=== PATIENT | female | born 1960 | race Caucasian/White ===

== ENCOUNTER 2016-06-01 22:48 | Emergency (ER) | payer MEDICARE, MEDICAID ==
[~2016-06-01] VITALS: Ht 157.5 cm; Wt 98.0 kg
[~2016-06-01 22:48] MED LIST: EFFE150C; FERR324T4; PERC10TA27; PREV30CA36; SULF1TAB47
[2016-06-01 22:55] VITALS: BP 142/90; PULSE 96; RESP 16; TEMP 97.5; O2SAT 96
[2016-06-02] MEDS ORDERED: HYDR-3583 PO (00:30)
[2016-06-02] MEDS ORDERED: LISI-515 PO (00:30)
[2016-06-02] MEDS ORDERED: VENL150C39 PO (00:30)
[2016-06-02] MEDS ORDERED: ZOLP5TAB3 PO (00:30)
[2016-06-02] MEDS ORDERED: OMEP40CA2 PO (00:30)
[2016-06-02] MEDS ORDERED: METO25TA3 PO (00:30)
[2016-06-02] MEDS ORDERED: CLON.5 PO (01:07)
[2016-06-02] MEDS ORDERED: CALC1CHW27 CHEW (01:07)
[2016-06-02] MEDS ORDERED: IBRU1CAP (01:07)
[2016-06-02] MEDS ORDERED: FLUT50SP EACH NARE (01:07)
[2016-06-02] MEDS ORDERED: GABA300C5 PO (01:07)
[2016-06-02] MEDS ORDERED: PROM25TA5 PO (01:07)
[2016-06-02] MEDS ORDERED: XOPEAER4 INH (01:07)
[2016-06-02] MEDS ORDERED: ASPI81CH CHEW (01:07)
--- NOTE | 2016-06-02 01:22 | PD ---
HPI Chief Complaint: GI Complaint Time Seen by Provider: 01:18 Travel History International Travel<30 days: No Contact w/Intl Traveler<30days: No Traveled to known affect area: No History of Present Illness HPI The patient is a 56-year-old female that comes in with nausea vomiting and diarrhea for 5 days. The patient states there is no blood in her stool or vomitus but the diarrhea is like water. She denies any fever, recent foreign travel, well water ingestion, recent antibiotics and denies any history of exposure to anyone with similar symptoms. She denies any history of bowel problems like regional enteritis or ulcerative colitis with herself or her family members. She does feel weak and dehydrated. PFSH Past Medical History Arthritis: Yes Asthma: No Autoimmune Disease: No Blood Disorders: No Anxiety: No Depression: No Heart Rhythm Problems: No Cancer: Yes (stage v lymphoma ) Cardiovascular Problems: No High Cholesterol: No Chemotherapy: Yes Chest Pain: No Congestive Heart Failure: No COPD: No Cerebrovascular Accident: No Diabetes: No Diminished Hearing: No Endocrine: No Gastrointestinal Disorders: Yes GERD: No Glaucoma: No Genitourinary: No Headaches: Yes Hepatitis: No Hiatal Hernia: No Hypertension: No Immune Disorder: No Kidney Stones: No Musculoskeletal: Yes Neurologic: No Psychiatric: No Reproductive: No Respiratory: No Migraines: Yes Myocardial Infarction: No Radiation Therapy: No Renal Failure: No Seizures: Yes (as a child and at age 45, none since) Sickle Cell Disease: Yes ( A CHILD, DOES NOT TAKE ANYTHING FOR IT NOW) Sleep Apnea: No Thyroid Disease: No Ulcer: No Influenza Vaccination: No : 4 Para: 3 Miscarriage: 1 Tubal Ligation: Yes (NOV 2005) Past Surgical History Abdominal Surgery: No AICD: No (left port) Appendectomy: No Arteriovenous Shunt: No Cardiac Surgery: No Cholecystectomy: No Ear Surgery: No Endocrine Surgery: No Eye Surgery: No Genitourinary Surgery: No Gynecologic Surgery: Yes Insulin Pump: No Joint Replacement: No Neurologic Surgery: No Oral Surgery: No Pacemaker: No Thoracic Surgery: No Other Surgery: Yes (tubal and , tae. knee replacment ) Social History Alcohol Use: No Tobacco Use: No Substance Use: No Allergies-Medications (Allergen,Severity, Reaction): Coded Allergies: No Known Allergies (Verified , 06/02/16) Reported Meds & Prescriptions Reported Meds & Active Scripts Active Reported Phenergan (Promethazine HCl) 25 Mg Tab 25 Mg PO Q6H PRN Klonopin (Clonazepam) 0.5 Mg Tab 0.5 Mg PO DIRECTED Imbruvica (Ibrutinib) 140 Mg Cap 140 Aspirin 81 Mg Chew 81 Mg CHEW DAILY Calcium Carbonate Extra Strength (Calcium Carbonate (Antacid)) 750 Mg Chew 500 Mg CHEW BID PRN Gabapentin 300 Mg Cap 300 Mg PO BID Xopenex Hfa 15 GM Inh (Levalbuterol 15 GM Inh) 45 Mcg/Act Aer 45 Mcg INH Q4HR Shake well before using. (1 puff = 45 mcg) Fluticasone Nasal [place] 50 Mcg/Act Naspr 100 Mcg EACH NARE BID 50 mcg/spray Hydrocodone-Acetaminophen 10-325 mg Tab 1 Tab PO Q4H PRN Zolpidem (Zolpidem Tartrate) 5 Mg Tab 5 Mg PO HS PRN Omeprazole 40 Mg Cap 40 Mg PO DAILY Metoprolol Tartrate 25 Mg Tab 25 Mg PO BID Lisinopril 20 Mg Tab 20 Mg PO DAILY Venlafaxine ER 24 HR (Venlafaxine HCl) 150 Mg Cap 150 Mg PO DAILY Review of Systems Except as stated in HPI: all other systems reviewed are Neg Physical Exam Narrative GENERAL: The patient is alert, moderately dehydrated appearing, oriented 3 in minimal apparent distress with her abdominal discomfort. Her vital signs show blood pressure 142/90 but otherwise normal. SKIN: Warm and dry. HEAD: Atraumatic. Normocephalic. EYES: Pupils equal and round. No scleral icterus. No injection or drainage. ENT: No nasal bleeding or discharge. Mucous membranes pink and moist. NECK: Trachea midline. No JVD. CARDIOVASCULAR: Regular rate and rhythm. No murmur appreciated. RESPIRATORY: No accessory muscle use. Clear to auscultation. Breath sounds equal bilaterally. GASTROINTESTINAL: Abdomen soft, with minimal tenderness in the periumbilical area to direct palpation, nondistended. Hepatic and splenic margins not palpable. No guarding or rebound is present. Specifically, there is no tenderness in the appendix or gallbladder areas. MUSCULOSKELETAL: No obvious deformities. No clubbing. No cyanosis. No edema. NEUROLOGICAL: Awake and alert. No obvious cranial nerve deficits. Motor grossly within normal limits. Normal speech. PSYCHIATRIC: Appropriate mood and affect; insight and judgment normal. Data Data Last Documented VS Vital Signs Date Time Temp Pulse Resp B/P Pulse Ox O2 Delivery O2 Flow Rate FiO2 06/01/16 22:55 97.5 96 16 142/90 96 Room Air Orders Complete Blood Count With Diff (06/02/16 01:22) Comprehensive Metabolic Panel (06/02/16 01:22) Lipase (06/02/16 01:22) Ondansetron Inj (Zofran Inj) (06/02/16 01:30) Sodium Chlor 0.9% 1000 Ml Inj (Ns 1000 M (06/02/16 01:30) Morphine Inj (Morphine Inj) (06/02/16 02:15) Ondansetron Inj (Zofran Inj) (06/02/16 02:15) Pantoprazole Inj (Protonix Inj) (06/02/16 02:15) Sodium Chlor 0.9% 1000 Ml Inj (Ns 1000 M (06/02/16 02:10) Famotidine Inj (Pepcid Inj) (06/02/16 02:15) Al-Mag Hy-Si 40-40-4 Mg/Ml Liq (Mag-Al P (06/02/16 02:15) Lidocaine 2% Viscous (Xylocaine 2% Visco (06/02/16 02:15) Labs Laboratory Tests Test 06/02/16 01:26 White Blood Count 7.0 TH/MM3 Red Blood Count 4.99 MIL/MM3 Hemoglobin 13.6 GM/DL Hematocrit 40.6 % Mean Corpuscular Volume 81.3 FL Mean Corpuscular Hemoglobin 27.3 PG Mean Corpuscular Hemoglobin 33.6 % Concent Red Cell Distribution Width 15.8 % Platelet Count 165 TH/MM3 Mean Platelet Volume 9.1 FL Neutrophils (%) (Auto) 48.0 % Lymphocytes (%) (Auto) 44.0 % Monocytes (%) (Auto) 7.0 % Eosinophils (%) (Auto) 0.8 % Basophils (%) (Auto) 0.2 % Neutrophils # (Auto) 3.4 TH/MM3 Lymphocytes # (Auto) 3.1 TH/MM3 Monocytes # (Auto) 0.5 TH/MM3 Eosinophils # (Auto) 0.1 TH/MM3 Basophils # (Auto) 0.0 TH/MM3 CBC Comment DIFF FINAL Differential Comment Sodium Level 147 MEQ/L Potassium Level 3.2 MEQ/L Chloride Level 118 MEQ/L Carbon Dioxide Level 19.8 MEQ/L Anion Gap 9 MEQ/L Blood Urea Nitrogen 15 MG/DL Creatinine 0.59 MG/DL Estimat Glomerular Filtration 105 ML/MIN Rate Random Glucose 108 MG/DL Calcium Level 8.2 MG/DL Total Bilirubin 0.4 MG/DL Aspartate Amino Transf 11 U/L (AST/SGOT) Alanine Aminotransferase 22 U/L (ALT/SGPT) Alkaline Phosphatase 63 U/L Total Protein 6.9 GM/DL Albumin 3.8 GM/DL Lipase 157 U/L [facility] Medical Decision Making Medical Screen Exam Complete: Yes Emergency Medical Condition: Yes Medical Record Reviewed: Yes Differential Diagnosis Viral gastroenteritis, dehydration, electrolyte disorder, anemia, pancreatitis unlikely Narrative Course It is now 0300 and the patient feels much better and wants to go home. She has Phenergan at home and she has Prilosec and other medications for her reflux esophagitis. Impression: Gastroenteritis Plan: She should limit her diet to clear liquids for the next day or 2 and gradually reintroduce solid foods adding fatty foods in last. She needs to follow-up with her primary care physician next week. Diagnosis Primary Impression: Gastroenteritis Additional Impression: GERD (gastroesophageal reflux disease) Additional Instructions: As we discussed, drink Gatorade and clear liquids initially and then Jell-O and then soups and then foods without fat. Make sure you stay well-hydrated. Follow-up next week with your primary care physician. Med/Other Pt SpecificInfo: No Change to Meds Disposition: 01 DISCHARGE HOME Condition: Stable Sedrick Booth MD Jun 02, 2016 01:22
[2016-06-02] MEDS ORDERED: ONDANSETRON HCL 4 MG/2 ML VIAL IV PUSH ONE (01:30)
[2016-06-02] MEDS ORDERED: SODIUM CHLOR 0.9% 1000 ML INJ 1,000 ML IV ONE (01:30)
[2016-06-02 01:36] LABS: AUTOMATED NEUTROPHIL # 3.4 TH/MM3 (1.8-7.7); BASOPHIL % 0.2 % (0.0-2.0); EOSINOPHIL # 0.1 TH/MM3 (0-0.4); EOSINOPHIL % 0.8 % (0.0-4.0); HEMATOCRIT 40.6 % (35.0-46.0); HEMO FLAGS DIFF FINAL; LYMPHOCYTE # 3.1 TH/MM3 (1.0-4.8); MEAN CELL VOLUME 81.3 FL (80.0-100.0); MEAN CORPUSCULAR HEMOGLOBIN 27.3 PG (27.0-34.0); MEAN CORPUSCULAR HGB CONC 33.6 % (32.0-36.0); PLATELET COUNT 165 TH/MM3 (150-450); RED BLOOD COUNT 4.99 MIL/MM3 (4.00-5.30); RED CELL DISTRIBUTION WIDTH 15.8 % (11.6-17.2)
[2016-06-02 01:53] LABS: ANION GAP 9 MEQ/L (5-15); AST (GOT) 11 U/L (15-37); BICARBONATE 19.8 MEQ/L (21.0-32.0); BLOOD UREA NITROGEN 15 MG/DL (7-18); CHLORIDE 118 MEQ/L (98-107); GLOMERULAR FILTRATION RATE 105 ML/MIN (>89); POTASSIUM 3.2 MEQ/L (3.5-5.1); SODIUM (NA) 147 MEQ/L (136-145)
[2016-06-02 01:56] LABS: ALKALINE PHOSPHATASE 63 U/L (45-117); ALT (GPT) 22 U/L (10-53); TOTAL BILIRUBIN ADULT 0.4 MG/DL (0.2-1.0)
[2016-06-02] MEDS ORDERED: SODIUM CHLOR 0.9% 1000 ML INJ 1,000 ML IV SCH (02:10)
[2016-06-02] MEDS ORDERED: ONDANSETRON HCL 4 MG/2 ML VIAL IVP ONE (02:15)
[2016-06-02] MEDS ORDERED: PANTOPRAZOLE SODIUM 40 MG VIAL IVP ONE (02:15)
[2016-06-02] MEDS ORDERED: ALUMINUM/MAGNESIUM/SIMETH 30 ML CUP PO ONE (02:15)
[2016-06-02] MEDS ORDERED: FAMOTIDINE 20 MG/2 ML VIAL IV PUSH ONE (02:15)
[2016-06-02] MEDS ORDERED: LIDOCAINE VISCOUS 2% SOLN 15 ML UDC PO ONE (02:15)
[2016-06-02] MEDS ORDERED: MORPHINE SULFATE 4 MG/ML INJ IV PUSH ONE (02:15)
[2016-06-02] MEDS ORDERED: POTASSIUM CHLORIDE 20 MEQ CONTROLLED RELEASE TAB PO ONE ×2 (03:15)
== END 2016-06-02 03:51 | disposition home or self-care (01) ==
LOC: NEPC 22:48
DX: K52.9 Noninfective gastroenteritis and colitis, unspecified (principal); K21.9 Gastro-esophageal reflux disease without esophagitis
CPT/HCPCS: 80053; 83690; 85025; 96361; 96374; 96375; 96376; 99284; C9113; J2270; J2405; J7030